=== PATIENT | female | born 1945 ===

== ENCOUNTER 2016-09-16 19:10 | Inpatient (IN) | payer MEDICARE, OTHER, MEDICAID ==
[2016-09-16 21:54] LABS: BASO % 0.6 % (0.0-2.0); EOS % 0.5 % (0.0-4.0); HEMATOCRIT 44.2 % (34.0-47.0); LYMPH # 1.6 K/uL (1.0-4.3); LYMPH % 20.8 % (20.0-40.0); MEAN CELL VOLUME 92.8 fl (81.0-99.0); MEAN CORPUSCULAR HGB CONC 32.4 g/dL (33.0-37.0); MEAN PLATELET VOLUME 8.7 fl (7.2-11.7); MONO # 0.6 K/uL (0.0-0.8); MONO % 7.9 % (0.0-10.0); NEUT # 5.3 K/uL (1.8-7.0); NEUT % 70.2 % (50.0-75.0); NRBC % 0.1 % (0.0-0.0); RED CELL DISTRIBUTION WIDTH 13.8 % (11.5-14.5); WHITE BLOOD COUNT 7.5 K/uL (4.8-10.8)
[2016-09-16 22:03] LABS: ALB/GLOB RATIO 1.1 (1.0-2.1); ALKALINE PHOSPHATASE 101 U/L (38-126); ALT/SGPT 24 U/L (9-52); AST/SGOT 23 U/L (14-36); BILIRUBIN,TOTAL 0.9 mg/dl (0.2-1.3); BLOOD UREA NITROGEN 10 mg/dl (7-17); CALCIUM 9.5 mg/dL (8.4-10.2); CARBON DIOXIDE 33 mmol/L (22-30); CHLORIDE 99 mmol/L (98-107); GFR AFRICAN-AMERICAN > 60; GLUCOSE,RANDOM 90 mg/dL (65-105); LIPASE 969 U/L (23-300); MAGNESIUM 2.2 MG/DL (1.6-2.3); PHOSPHOROUS 3.6 mg/dl (2.5-4.5); SODIUM 142 mmol/l (132-148)
[2016-09-16 22:11] LABS: PARTIAL THROMBOPLASTIN TIME 29.1 SECONDS (23.3-32.5)
[2016-09-16 22:32] LABS: THYROID STIMULATING HORMONE 1.52 mIU/ML (0.46-4.68)
--- NOTE | 2016-09-16 22:54 | ED PDOC ---
HPI:Nausea, Vomiting, Diarrhea Time Seen by Provider: 09/16/16 19:39 Chief Complaint (Nursing): Weakness/Neurological Deficit Chief Complaint (Provider): not eating History Per: Family History/Exam Limitations: clinical condition Additional Complaint(s): Family reports that for the last 2 weeks patient has not been eating or drinking. She denies any pain and has had no vomiting or diarrhea. Family reports that she just sleeps all day long and barely gets out of bed. Does not have any appetite whatsoever and seems to be getting weaker because of the lack of PO intake. Also was started on new neurologic medication 3 weeks ago. Past Medical History Reviewed: Historical Data, Nursing Documentation, Vital Signs Vital Signs: Last Vital Signs Temp 98.1 F 09/16/16 19:31 Pulse 92 H 09/16/16 19:31 Resp 16 09/16/16 19:31 BP 103/73 09/16/16 19:31 Pulse Ox 100 09/16/16 19:31 - Medical History PMH: Multiple Sclerosis, Osteoporosis - Surgical History Surgical History: No Surg Hx - Family History Family History: States: No Known Family Hx - Social History Current smoker - smoking cessation education provided: No Alcohol: None Drugs: Denies - Home Medications Home Medications: Ambulatory Orders Medication Instructions Recorded Alendronate [Fosamax] 70 mg PO QWK 09/17/16 Galantamine HBr [Galantamine HBr] 16 mg PO DAILY 09/17/16 Memantine HCl/Donepezil HCl 14 mg PO DAILY 09/17/16 [Namzaric 14 mg-10 mg Capsule] Memantine HCl/Donepezil HCl 21 mg PO DAILY 09/17/16 [Namzaric 21 mg-10 mg Capsule] Memantine HCl/Donepezil HCl 28 mg PO DAILY 09/17/16 [Namzaric 28 mg-10 mg Capsule] tiZANidine [Zanaflex] 2 mg PO BID 09/17/16 - Allergies Allergies/Adverse Reactions: Allergies Allergy/AdvReac Type Severity Reaction Status Date / Time No Known Allergies Allergy Verified 09/16/16 19:31 Review of Systems ROS Statement: Except As Marked, All Systems Reviewed And Found Negative (and as per HPI) Constitutional: Positive for: Weakness Gastrointestinal: Negative for: Nausea, Vomiting, Abdominal Pain, Diarrhea, Constipation, Melena, Hematochezia, Hematemesis Neurological: Negative for: Headache, Dizziness Physical Exam - Reviewed Nursing Documentation Reviewed: Yes Vital Signs Reviewed: Yes - Physical Exam Appears: Positive for: No Acute Distress (but tired appearing) Head Exam: Positive for: ATRAUMATIC, NORMOCEPHALIC Skin: Positive for: Warm, Dry Eye Exam: Positive for: EOMI, PERRL ENT: Negative for: Pharyngeal Erythema, Tonsillar Exudate Neck: Positive for: Painless ROM, Supple Cardiovascular/Chest: Positive for: Regular Rate, Rhythm. Negative for: Murmur Respiratory: Positive for: Normal Breath Sounds. Negative for: Wheezing, Respiratory Distress Gastrointestinal/Abdominal: Positive for: Bowel Sounds, Soft. Negative for: Tenderness, Mass, Distended, Guarding, Rebound, Asicites Back: Positive for: Normal Inspection. Negative for: Vertebral Tenderness Extremity: Positive for: Normal ROM. Negative for: Deformity Lymphatic: Negative for: Adenopathy Neurologic/Psych: Positive for: Alert. Negative for: Motor/Sensory Deficits - Laboratory Results Result Diagrams: 09/17/16 06:00 09/17/16 06:00 Interpretation Of Abn Labs: Labs c/w pancreatitis. - ECG O2 Sat by Pulse Oximetry: 100 Disposition - Clinical Impression Clinical Impression: Pancreatitis Counseled Patient/Family Regarding: Studies Performed, Diagnosis - Disposition Disposition Time: 22:00 Condition: SERIOUS - Pt Status Changed To: Hospital Disposition Of: Inpatient - Admit Certification Admit to Inpatient:: After my assessment, the patient will require hospitalization for at least two midnights. This is because of the severity of symptoms shown, intensity of services needed, and/or the medical risk in this patient being treated as an outpatient. - POA Present On Arrival: None
--- NOTE | 2016-09-17 00:01 | CP.PCM.HP ---
History of Present Illness - History of Present Illness History of Present Illness: 70 yo F w/ PMHx of MS presented to ED with due to 2 weeks of loss of appetite. Patient/family states patient had started a medication (namzaric) 2 wks ago when symptoms began. Medication was started by Neurologist, Dr. Mcduffie. Family states patient tends to pick food here and there prior to beginning of symptoms. For last 2 wks, patient has no interest in food and at times nods off during feedings. Patient denies nausea, vomiting, abdominal pain, fever, chills , back pain, chest pain, sob, cough, or any other recent medication changes. states urine output has been less in the last day which prompted visit. BM have been more firm then prior. No other complaints at this time. PMD: [facility], Dr. Ashely [place] PMHx: Multiple Sclerosis (dx'ed 30yrs ago) Meds: Namzaric, Fosamax, Galantamine Hydrobromide ER 16 MG daily, Tizanidine HCl 2 MG Tablet 1 tablet as needed Orally every 12 hrs Allergies: Denies Surgical hx : Denies Family hx: non-contributory Social hx: Denies tobacco, etoh, or illicit drug use. Lives with , refuses homemaker services. ED Course: Vitals stable PE unremarkable Labs notable for Lipase 969, no WBC Present on Admission - Present on Admission Any Indicators Present on Admission: No Review of Systems - Review of Systems All systems: reviewed and no additional remarkable complaints except (mentioned in HPI) Past Patient History - NEUROLOGICAL Hx Multiple Sclerosis: Yes Meds Allergies/Adverse Reactions: Allergies Allergy/AdvReac Type Severity Reaction Status Date / Time No Known Allergies Allergy Verified 09/16/16 19:31 Physical Exam - Constitutional Appears: Well, Non-toxic, No Acute Distress - Head Exam Head Exam: ATRAUMATIC, NORMAL INSPECTION, NORMOCEPHALIC - Eye Exam Eye Exam: EOMI, Normal appearance - ENT Exam ENT Exam: Mucous Membranes Moist Additional comments: Hard palate mucosa hypertrophy - Neck Exam Neck exam: Positive for: Normal Inspection - Respiratory Exam Respiratory Exam: Clear to Auscultation Bilateral, NORMAL BREATHING PATTERN. absent: Decreased Breath Sounds, Rales, Rhonchi, Wheezes - Cardiovascular Exam Cardiovascular Exam: RRR, +S1, +S2 - GI/Abdominal Exam GI & Abdominal Exam: Normal Bowel Sounds, Soft. absent: Distended, Firm, Guarding, Rebound, Tenderness - Extremities Exam Extremities exam: Positive for: normal inspection. Negative for: calf tenderness, pedal edema - Neurological Exam Neurological exam: Alert, Oriented x3 - Psychiatric Exam Psychiatric exam: Normal Affect, Normal Mood - Skin Skin Exam: Dry, Intact, Normal Color, Warm Results - Vital Signs Recent Vital Signs: Last Vital Signs Temp 98.1 F 09/16/16 19:31 Pulse 92 H 09/16/16 19:31 Resp 16 09/16/16 19:31 BP 103/73 09/16/16 19:31 Pulse Ox 100 09/16/16 22:59 - Labs Result Diagrams: 09/16/16 21:24 09/16/16 21:24 Assessment & Plan (1) Pancreatitis Status: Acute (2) Multiple sclerosis Status: Acute (3) DVT prophylaxis Status: Acute - Assessment and Plan (Free Text) Assessment: 70 yo F w/ PMHx of MS with 2 wks of loss of appetite admitted for pancreatitis. Plan: (1) Pancreatitis - Vitals stable, Afebrile, No WBC, LFTs normal. - Lipase 969 - Asymptomatic - Etiology at this time unknown, medication related vs high TG - Unable to calculate [place] criteria due to pending LDH, though BISAP score of 1 - NPO - Monitor vitals and I&O - LR @ 150cc/hr due to unknown urinary output BUN/Cr normal, - Labs in AM, including lipid panel - Although LFTs normal, can consider u/s of abdomen to r/o cholelithiasis - Continue to monitor (2) Multiple sclerosis - Will hold meds for now - Dr. Mcduffie is patient's neurology, consider input (3) DVT prophylaxis - Lovenox 40mg SC daily
[2016-09-17] MEDS: Lactated Ringer's 1,000 ML IV SCH ×2 (00:24→06:57)
[2016-09-17 02:17] LABS: RBC URINE 7 /hpf (0-3); URINE BACTERIA RARE (<OCC); URINE BILIRUBIN NEGATIVE (NEGATIVE); URINE BLOOD NEGATIVE (NEGATIVE); URINE COLOR YELLOW (YELLOW); URINE GLUCOSE (UA) NEG (Normal); URINE KETONE 80 mg/dL (NEGATIVE); URINE LEUKOCYTE ESTERASE LARGE Leu/uL (Negative); URINE PROTEIN 30 mg/dL (NEGATIVE); URINE UROBILINOGEN 0.2-1.0 mg/dL (0.2-1.0); WBC URINE 49 /hpf (0-5)
[2016-09-17 07:18] LABS: HEMATOCRIT 37.3 % (34.0-47.0); MEAN CELL VOLUME 92.8 fl (81.0-99.0); MEAN CORPUSCULAR HEMOGLOBIN 30.6 pg (27.0-31.0); RED CELL DISTRIBUTION WIDTH 13.8 % (11.5-14.5); WHITE BLOOD COUNT 5.6 K/uL (4.8-10.8)
[2016-09-17 07:41] LABS: ALB/GLOB RATIO 1.1 (1.0-2.1); ALKALINE PHOSPHATASE 80 U/L (38-126); ALT/SGPT 24 U/L (9-52); AST/SGOT 16 U/L (14-36); BILIRUBIN,TOTAL 0.9 mg/dl (0.2-1.3); BLOOD UREA NITROGEN 9 mg/dl (7-17); CALCIUM 8.9 mg/dL (8.4-10.2); CARBON DIOXIDE 32 mmol/L (22-30); CHLORIDE 103 mmol/L (98-107); CHOLESTEROL 164 mg/dL (0-199); GFR AFRICAN-AMERICAN > 60; GLUCOSE,RANDOM 81 mg/dL (65-105); POTASSIUM 4.5 MMOL/L (3.6-5.0); SODIUM 142 mmol/l (132-148); TOTAL PROTEIN 6.6 G/DL (6.3-8.2)
[2016-09-17] MEDS: Enoxaparin 40 mg Syringe SC SCH (08:50)
--- NOTE | 2016-09-17 09:26 | CP.PCM.PN ---
Subjective - Date & Time of Evaluation Date of Evaluation: 09/17/16 Time of Evaluation: 07:50 - Subjective Subjective: Patient seen and examined bedside. Denies N/V/D , abdominal pain, fever, chest pain, SOB. 1 bowel movement yesterday. Denies low intake for the last 2 weeks and has been ambulating at home with walker. History given in ED by her . Patient taking meds for dementia and her denial of symptoms may be related with memory loss. She has f/u with neurology also for Multiple sclerosis. No relatives bedside now. Denies weakness, difficulty walking or difficulty vision. Objective - Vital Signs/Intake and Output Vital Signs (last 24 hours): Temp Pulse Resp BP Pulse Ox 98.5 F 69 20 101/56 L 97 09/17/16 08:38 09/17/16 08:38 09/17/16 08:38 09/17/16 08:38 09/17/16 08:38 Intake and Output: 09/17/16 09/17/16 06:59 18:59 Intake Total 150 Output Total 250 Balance -100 - Medications Medications: Current Medications Enoxaparin Sodium (Lovenox) 40 mg SC DAILY [facility] PRN Reason: Protocol Last Admin: 09/17/16 08:50 Dose: 40 mg Lactated Ringer's (Lactated Ringer's) 1,000 mls @ 150 mls/hr IV .[id number] [facility] Last Admin: 09/17/16 06:57 Dose: 150 mls/hr - Labs Labs: 09/17/16 06:00 09/17/16 06:00 PT 11.7 SECONDS (9.6-11.2) H 09/16/16 21:24 INR 1.13 (0.92-1.08) H 09/16/16 21:24 APTT 29.1 SECONDS (23.3-32.5) 09/16/16 21:24 - Constitutional Appears: Well, Non-toxic, No Acute Distress - Head Exam Head Exam: ATRAUMATIC, NORMOCEPHALIC - Eye Exam Eye Exam: Normal appearance - Respiratory Exam Respiratory Exam: Clear to Ausculation Bilateral. absent: Rhonchi, Wheezes - Cardiovascular Exam Cardiovascular Exam: REGULAR RHYTHM, +S1, +S2 - GI/Abdominal Exam GI & Abdominal Exam: Soft, Normal Bowel Sounds. absent: Tenderness, Rebound - Extremities Exam Extremities Exam: Normal Inspection. absent: Pedal Edema - Neurological Exam Neurological Exam: Alert, Awake - Psychiatric Exam Psychiatric exam: Normal Affect, Normal Mood - Skin Skin Exam: Intact Assessment and Plan - Assessment and Plan (Free Text) Plan: Assessment: 70 yo , f, PMhx/o MS with 2 wks of loss of appetite admitted for pancreatitis. (1) Pancreatitis - Vitals stable, Afebrile, No WBC, LFTs normal. - Lipase 969 - Asymptomatic - Etiology at this time unknown, medication related vs high TG - Unable to calculate [place] criteria due to pending LDH, though BISAP score of 1 - Monitor vitals and I&O - lipid panel -Us abd -F/U lipase -IV fluids d/c. Patient well hydrated. -Regular diet. Patient asymptomatic. - Continue to monitor (2) Multiple sclerosis - Will hold meds for now - Dr. Mcduffie consulted by phone. States patient is stable and was seen 2 weeks ago. (3) DVT prophylaxis - Lovenox 40mg SC daily
--- NOTE | 2016-09-17 13:17 | US ---
HISTORY: lipase elevated.possible pancreatitis COMPARISON: None. TECHNIQUE: Sonographic evaluation of the abdomen. FINDINGS: LIVER: Measures 10.4 cm. Normal echogenicity of the liver parenchyma. No mass. No intrahepatic bile duct dilatation. GALLBLADDER: Single large gallstone within the gallbladder measuring 2.5 centimeters in diameter. No gallbladder wall thickening or pericholecystic fluid seen. Technologist did not report sonographic Dalton sign. COMMON BILE DUCT: Measures 2 mm. No stones. No dilatation. PANCREAS: Unremarkable as visualized. No mass. No ductal dilatation. RIGHT KIDNEY: Measures 9.9cm. Normal echogenicity. No calculus, mass, or hydronephrosis. LEFT KIDNEY: Measures 9.7cm. Normal echogenicity. No calculus, mass, or hydronephrosis. SPLEEN: Normal in size and contour. No mass. AORTA: No aneurysmal dilatation. IVC: Unremarkable. OTHER FINDINGS: None. IMPRESSION: Single large gallstone within the gallbladder. No definite ultrasound evidence of acute cholecystitis. No evidence of bile duct dilatation. No evidence of pancreatitis.
[2016-09-17] MEDS: Pantoprazole 20 mg EC Tab PO SCH (13:24)
[2016-09-18] MEDS: Enoxaparin 40 mg Syringe SC SCH (08:26)
[2016-09-18] MEDS: Pantoprazole 20 mg EC Tab PO SCH (08:26)
--- NOTE | 2016-09-18 11:41 | CP.PCM.PN ---
Subjective - Date & Time of Evaluation Date of Evaluation: 09/18/16 Time of Evaluation: 08:37 - Subjective Subjective: No active complaints. Denies abdominal pain, nausea, vomiting, diarrhea, Afebrile. Limited PO intake. Alert. Orientation limited x1. Objective - Vital Signs/Intake and Output Vital Signs (last 24 hours): Temp Pulse Resp BP Pulse Ox 99.3 F 63 20 133/69 97 09/18/16 08:12 09/18/16 08:12 09/18/16 08:12 09/18/16 08:12 09/18/16 08:12 Intake and Output: 09/18/16 09/18/16 06:59 18:59 Intake Total 180 Output Total 500 Balance -320 - Medications Medications: Current Medications Enoxaparin Sodium (Lovenox) 40 mg SC DAILY [facility] PRN Reason: Protocol Last Admin: 09/18/16 08:26 Dose: 40 mg Pantoprazole Sodium (Protonix Ec Tab) 20 mg PO DAILY [facility] Last Admin: 09/18/16 08:26 Dose: 20 mg - Labs Labs: 09/17/16 06:00 09/17/16 06:00 PT 11.7 SECONDS (9.6-11.2) H 09/16/16 21:24 INR 1.13 (0.92-1.08) H 09/16/16 21:24 APTT 29.1 SECONDS (23.3-32.5) 09/16/16 21:24 - Head Exam Head Exam: ATRAUMATIC, NORMOCEPHALIC - Eye Exam Eye Exam: EOMI, Normal appearance - Cardiovascular Exam Cardiovascular Exam: REGULAR RHYTHM, +S1, +S2 - GI/Abdominal Exam GI & Abdominal Exam: Soft. absent: Distended, Tenderness - Neurological Exam Neurological Exam: Alert Assessment and Plan - Assessment and Plan (Free Text) Plan: 1. Multiple sclerosis Dr. Mcduffie Neurology as outpatient. Patient is stable and was seen 2 weeks ago. Deconditioning- PT and OT eval and treat 2. Elevated Lipase Resolved Asymptomatic Unlikely Pancreatitis Follow up Lipase- WNL Abdominal Ultrasound- WNL Vitals stable, Afebrile, No WBC, LFTs normal. Monitor vitals and I&O 3. Decreased Appetite Consider Remeron augmenteion 4. DVT prophylaxis - Lovenox 40mg SC daily
[2016-09-19] MEDS: Enoxaparin 40 mg Syringe SC SCH (08:23)
[2016-09-19] MEDS: Pantoprazole 20 mg EC Tab PO SCH (08:24)
--- NOTE | 2016-09-19 09:58 | CP.PCM.PN ---
Subjective - Date & Time of Evaluation Date of Evaluation: 09/19/16 Time of Evaluation: 08:10 - Subjective Subjective: Patient seen and examined bedside. Reports feeling well. Denies abd pain,N/V/D. Tolerating regular diet. Still contacting her . PT evaluation recommended acute rehab Objective - Vital Signs/Intake and Output Vital Signs (last 24 hours): Temp Pulse Resp BP Pulse Ox 98.3 F 65 20 137/80 95 09/19/16 07:56 09/19/16 07:56 09/19/16 07:56 09/19/16 07:56 09/19/16 07:56 - Medications Medications: Current Medications Enoxaparin Sodium (Lovenox) 40 mg SC DAILY [facility] PRN Reason: Protocol Last Admin: 09/19/16 08:23 Dose: 40 mg Pantoprazole Sodium (Protonix Ec Tab) 20 mg PO DAILY [facility] Last Admin: 09/19/16 08:24 Dose: 20 mg - Labs Labs: 09/17/16 06:00 09/17/16 06:00 PT 11.7 SECONDS (9.6-11.2) H 09/16/16 21:24 INR 1.13 (0.92-1.08) H 09/16/16 21:24 APTT 29.1 SECONDS (23.3-32.5) 09/16/16 21:24 - Constitutional Appears: Non-toxic, No Acute Distress - Head Exam Head Exam: NORMOCEPHALIC - Eye Exam Eye Exam: Normal appearance - Respiratory Exam Respiratory Exam: Clear to Ausculation Bilateral. absent: Rales, Rhonchi, Wheezes - Cardiovascular Exam Cardiovascular Exam: REGULAR RHYTHM, +S1, +S2 - GI/Abdominal Exam GI & Abdominal Exam: Soft, Normal Bowel Sounds. absent: Tenderness - Extremities Exam Extremities Exam: Normal Inspection. absent: Pedal Edema - Back Exam Back Exam: absent: NORMAL INSPECTION - Neurological Exam Neurological Exam: Alert, Awake - Skin Skin Exam: Intact Assessment and Plan - Assessment and Plan (Free Text) Plan: 70 yo , f, PMhx/o MS. Patient's c/o 2 wks of loss of appetite, low urination, admitted for possible acute pancreatitis. Plan: 1. Multiple sclerosis Dr. Mcduffie Neurology as outpatient. Patient is stable and was seen 2 weeks ago. PT evaluation recommends acute rehab 2. Elevated Lipase Resolved Asymptomatic Unlikely Pancreatitis Follow up Lipase- WNL Abdominal Ultrasound- Single gallstone within gallbladder. No pancreatitis, no cholecystitis. Vitals stable, Afebrile, No WBC, LFTs normal. Monitor vitals and I&O 3. Decreased Appetite Consider Remeron augmenteion 4. DVT prophylaxis - Lovenox 40mg SC daily
[2016-09-20] MEDS: Enoxaparin 40 mg Syringe SC SCH (08:56)
[2016-09-20] MEDS: Pantoprazole 20 mg EC Tab PO SCH ×2 (08:56→08:57)
[2016-09-20] MEDS: Ampicillin/Sulbactam 3 GM in Sodium Chloride 0.9% 100 ML IVPB SCH ×3 (09:00→22:12)
--- NOTE | 2016-09-20 10:14 | CP.PCM.PN ---
Subjective - Date & Time of Evaluation Date of Evaluation: 09/20/16 Time of Evaluation: 07:40 - Subjective Subjective: Patient seen and examined bedside lying down. Patient noted with right facial swelling today in the morning. Reports toothache when eating started yesterday. Had fever last night. Denies chest pain, SOB, palpitation, N/V/D, abdominal pain , hallucination. Tolerating regular diet. AAO x 2 ( not in place). Confused about place orientation. States she is in her house, on her bed in her room. Objective - Vital Signs/Intake and Output Vital Signs (last 24 hours): Temp Pulse Resp BP Pulse Ox 99.0 F 78 20 113/78 96 09/20/16 07:56 09/20/16 07:56 09/20/16 07:56 09/20/16 07:56 09/20/16 07:56 Intake and Output: 09/20/16 09/20/16 06:59 18:59 Intake Total 120 Balance 120 - Medications Medications: Current Medications Ampicillin Sodium/Sulbactam (Sodium 3 gm/ Sodium Chloride) 100 mls @ 100 mls/ hr IVPB Q6 [facility] Last Admin: 09/20/16 09:00 Dose: 100 mls/hr Pantoprazole Sodium (Protonix Ec Tab) [address] [facility] Last Admin: 09/20/16 08:57 Dose: 20 mg - Labs Labs: 09/17/16 06:00 09/17/16 06:00 PT 11.7 SECONDS (9.6-11.2) H 09/16/16 21:24 INR 1.13 (0.92-1.08) H 09/16/16 21:24 APTT 29.1 SECONDS (23.3-32.5) 09/16/16 21:24 - Constitutional Appears: Non-toxic, No Acute Distress - Head Exam Head Exam: ATRAUMATIC, NORMOCEPHALIC Additional comments: Right facial swelling (cheek) with mild erythema.TD to palpation. right upper maxilla with tooth percussion positive TD - Eye Exam Eye Exam: Normal appearance - Respiratory Exam Respiratory Exam: Clear to Ausculation Bilateral. absent: Rales, Rhonchi, Wheezes - Cardiovascular Exam Cardiovascular Exam: REGULAR RHYTHM, +S1, +S2 - GI/Abdominal Exam GI & Abdominal Exam: Soft, Normal Bowel Sounds. absent: Tenderness - Extremities Exam Extremities Exam: Normal Inspection. absent: Calf Tenderness - Neurological Exam Neurological Exam: Alert, Awake (Oriented x 2( not in place)) - Psychiatric Exam Psychiatric exam: Normal Affect - Skin Skin Exam: Intact Assessment and Plan - Assessment and Plan (Free Text) Plan: 70 yo , f, PMhx/o MS. Patient's c/o 2 wks of loss of appetite, low urination, admitted for possible acute pancreatitis. Assessment/Plan 1. Multiple sclerosis -Dr. Mcduffie Neurology as outpatient. -Patient is stable and was seen 2 weeks ago. -PT evaluation recommends acute rehab -Acute rehab discussed with patient's son by high school social studies teacher and he declined sub acute rehab in hospital. Patient's son and wants PT outpatient. Pending insurance approval 2) Right side odontogenic facial cellulitis - right facial swelling, right upper maxila with tooth decay and tooth percussion positive -Vitals sings reviewed: fever 102.4 -Unasyn ( Ampicillin sodium/Sulbactam sodium) 3 g IV Q6h started today 3 Elevated Lipase Resolved Asymptomatic Unlikely Pancreatitis Follow up Lipase- WNL Abdominal Ultrasound- Single gallstone within gallbladder. No pancreatitis, no cholecystitis. Vitals stable, Afebrile, No WBC, LFTs normal. Monitor vitals and I&O 4. Decreased Appetite Consider Remeron augmenteion 5. DVT prophylaxis - Lovenox 40mg SC daily -
[2016-09-20] MEDS ORDERED: Sodium Chloride 0.9% 1,000 ML IV SCH (16:30)
--- NOTE | 2016-09-20 20:33 | CP.PCM.PN ---
Subjective - Date & Time of Evaluation Date of Evaluation: 09/20/16 Time of Evaluation: 20:30 - Subjective Subjective: ID NOTE PATIENT EXAMINED ,CHART REVIEWED ORDERS GIVEN FULL CONSULT DICTATED Objective - Vital Signs/Intake and Output Vital Signs (last 24 hours): Temp Pulse Resp BP Pulse Ox 98.7 F 87 20 111/73 100 09/20/16 17:29 09/20/16 17:29 09/20/16 17:29 09/20/16 17:29 09/20/16 19:10 - Medications Medications: Current Medications Enoxaparin Sodium (Lovenox) 40 mg SC DAILY [facility] PRN Reason: Protocol Ampicillin Sodium/Sulbactam (Sodium 3 gm/ Sodium Chloride) 100 mls @ 100 mls/ hr IVPB Q6 [facility] Last Admin: 09/20/16 16:52 Dose: 100 mls/hr Sodium Chloride (Sodium Chloride 0.9%) 1,000 mls @ 80 mls/hr IV .[id number] [facility] Stop: 09/21/16 16:31 Last Admin: 09/20/16 17:10 Dose: 80 mls/hr Clindamycin Phosphate 600 mg/ (Sodium Chloride) 104 mls @ 104 mls/hr IVPB Q8 [facility] Pantoprazole Sodium (Protonix Ec Tab) 20 mg PO DAILY [facility] Last Admin: 09/20/16 08:57 Dose: 20 mg - Labs Labs: 09/17/16 06:00 09/17/16 06:00 PT 11.7 SECONDS (9.6-11.2) H 09/16/16 21:24 INR 1.13 (0.92-1.08) H 09/16/16 21:24 APTT 29.1 SECONDS (23.3-32.5) 09/16/16 21:24
--- NOTE | 2016-09-20 21:00 | CON ---
DATE: 09/20/2016 The patient is admitted to med-surg floor. HISTORY OF PRESENT ILLNESS: The patient originally came to the Emergency Room because she had not be en eating or drinking well for the previous 2 weeks. She denies any vomiting or diarrhea, or pain. The family just says that she has been sleeping constantly and rarely gets out of bed, obviously she is becoming weaker. She is also on a new neurologic medication she has multiple sclerosis and osteop orosis. Apparently, there have been no new issues with her multiple sclerosis. The patient is being seen as within the past 3 days she has been developing swelling in the right facial area, which has become quite large. She states she has some pain in the area, but also she does appear a bit confuse d. PHYSICAL EXAMINATION: GENERAL: She is awake and responding to questions, mostly when I speak [place] to her. NECK: Supple, but she does have some tenderness on the right submandibular area. LUNGS: Decreased breath sounds at bases. HEART: Regular sinus rhythm. ABDOMEN: Soft, positive for bowel sounds. There was no tenderness when I examined the patient. EXTREMITIES: No CCE. LABORATORY DATA: White count is 5.6, hemoglobin 12.3, platelet count 242, there is a normal differen tial. Creatinine is 0.5. GFR is greater than 60. The patient had a lipase of 969 on admission and presently is 167. Urine shows some 49 microscopic WBCs. IMPRESSION: At the present time, the patient has what appears to be a dental abscess, right facial a ezekiel. I have ordered a CT scan of the face, sinuses, and mandible. She has been put on Unasyn and I have added clindamycin 600 mg IV piggyback to the treatment. She also has cultures pending. Other d iagnoses, as stated before, multiple sclerosis and osteoporosis. Javier Silverman MD cc: [id number] TT: 09/20/2016 20:59:46 Confirmation # [id number] Dictation # [id number]
[2016-09-21] MEDS: Clindamycin 600 MG in Sodium Chloride 0.9% 100 ML IVPB SCH ×3 (00:25→16:46)
[2016-09-21] MEDS: Ampicillin/Sulbactam 3 GM in Sodium Chloride 0.9% 100 ML IVPB SCH ×4 (04:28→21:00)
[2016-09-21 07:09] LABS: BASO % 0.5 % (0.0-2.0); EOS # 0.1 K/uL (0.0-0.7); EOS % 0.9 % (0.0-4.0); HEMATOCRIT 36.5 % (34.0-47.0); LYMPH # 1.3 K/uL (1.0-4.3); LYMPH % 18.7 % (20.0-40.0); MEAN CELL VOLUME 93.1 fl (81.0-99.0); MEAN CORPUSCULAR HEMOGLOBIN 30.3 pg (27.0-31.0); MEAN CORPUSCULAR HGB CONC 32.6 g/dL (33.0-37.0); MEAN PLATELET VOLUME 9.2 fl (7.2-11.7); MONO # 0.9 K/uL (0.0-0.8); NEUT # 4.5 K/uL (1.8-7.0); NEUT % 66.9 % (50.0-75.0); NRBC % 0.1 % (0.0-0.0); RED CELL DISTRIBUTION WIDTH 13.6 % (11.5-14.5); WHITE BLOOD COUNT 6.7 K/uL (4.8-10.8)
--- NOTE | 2016-09-21 07:37 | CP.PCM.PN ---
Subjective - Date & Time of Evaluation Date of Evaluation: 09/21/16 Time of Evaluation: 07:15 - Subjective Subjective: Patient seen and examined bedside. Less right facial swelling compared with yesterday. Denies facial pain, N/V/D. Afebrile last night. Had dinner last night. no BM reported yesterday. AAO x1. Denies hallucination. Objective - Vital Signs/Intake and Output Vital Signs (last 24 hours): Temp Pulse Resp BP Pulse Ox 99.9 F H 96 H 20 106/70 96 09/20/16 22:39 09/20/16 22:39 09/20/16 22:39 09/20/16 22:39 09/20/16 22:39 - Medications Medications: Current Medications Enoxaparin Sodium (Lovenox) 40 mg SC DAILY [facility] PRN Reason: Protocol Ampicillin Sodium/Sulbactam (Sodium 3 gm/ Sodium Chloride) 100 mls @ 100 mls/ hr IVPB Q6 [facility] Last Admin: 09/21/16 04:28 Dose: 100 mls/hr Sodium Chloride (Sodium Chloride 0.9%) 1,000 mls @ 80 mls/hr IV .[id number] [facility] Stop: 09/21/16 16:31 Last Admin: 09/20/16 17:10 Dose: 80 mls/hr Clindamycin Phosphate 600 mg/ (Sodium Chloride) 104 mls @ 104 mls/hr IVPB Q8 [facility] Last Admin: 09/21/16 00:25 Dose: 104 mls/hr Pantoprazole Sodium (Protonix Ec Tab) 20 mg PO DAILY [facility] Last Admin: 09/20/16 08:57 Dose: 20 mg - Labs Labs: 09/17/16 06:00 09/17/16 06:00 PT 11.7 SECONDS (9.6-11.2) H 09/16/16 21:24 INR 1.13 (0.92-1.08) H 09/16/16 21:24 APTT 29.1 SECONDS (23.3-32.5) 09/16/16 21:24 - Constitutional Appears: Non-toxic, No Acute Distress - Head Exam Additional comments: Right facial swelling with mild TD to palpation. Less swelling compared with yesterday. Tooth percussion positive right lower jaw - Eye Exam Eye Exam: Normal appearance Additional comments: no orbital cellulitis - Respiratory Exam Respiratory Exam: Clear to Ausculation Bilateral. absent: Rales, Rhonchi, Wheezes - Cardiovascular Exam Cardiovascular Exam: REGULAR RHYTHM, +S1, +S2 - GI/Abdominal Exam GI & Abdominal Exam: Soft, Normal Bowel Sounds. absent: Tenderness - Extremities Exam Extremities Exam: Normal Inspection - Neurological Exam Neurological Exam: Alert, Awake Additional comments: Oriented x 1 in person, not in place and time - Psychiatric Exam Psychiatric exam: Normal Mood - Skin Skin Exam: Intact Assessment and Plan - Assessment and Plan (Free Text) Plan: 70 yo , f, PMhx/o MS. Patient's c/o 2 wks of loss of appetite, low urination, admitted for possible acute pancreatitis. Assessment/Plan 1. Multiple sclerosis -Dr. Mcduffie Neurology as outpatient. -Patient is stable and was seen 2 weeks ago. -PT evaluation recommends acute rehab -Acute rehab discussed with patient's son by social director and he declined sub acute rehab in hospital. Patient's son and wants PT outpatient. Pending insurance approval 2) Right side odontogenic facial cellulitis - right facial swelling, right upper maxila with tooth decay and tooth percussion positive -Vitals sings reviewed: afebrile yesterday -Unasyn ( Ampicillin sodium/Sulbactam sodium) 3 g IV Q6h . 1st day today -ID consult appreciated: c/w Unasyn and Clindamycin 600 mg IV Q8h -CT head w/contrast f/o -sed rate high 91 secondary to infection 3 Elevated Lipase Resolved Asymptomatic Unlikely Pancreatitis Follow up Lipase- WNL Abdominal Ultrasound- Single gallstone within gallbladder. No pancreatitis, no cholecystitis. Vitals stable, Afebrile, No WBC, LFTs normal. Monitor vitals and I&O 4. Decreased Appetite Consider Remeron augmentation 5. DVT prophylaxis - Lovenox 40mg SC daily -
[2016-09-21] MEDS: Pantoprazole 20 mg EC Tab PO SCH (08:41)
[2016-09-21] MEDS: Enoxaparin 40 mg Syringe SC SCH (08:41)
[2016-09-21] MEDS ORDERED: Iohexol 300 100 ML IJ ONE (13:57)
[2016-09-21] MEDS ORDERED: Sodium Chloride 0.9% 50 ML IV ONE (13:57)
--- NOTE | 2016-09-21 15:27 | CT ---
PROCEDURE: CT HEAD WITH CONTRAST HISTORY: R DENTAL ABSCESS COMPARISON: None available. TECHNIQUE: Axial computed tomography images were obtained through the head/brain with intravenous contrast. Contrast dose: 100 mL Omnipaque 300 Radiation dose: Total exam DLP = 1507.99 mGy-cm. FINDINGS: HEMORRHAGE: No intracranial hemorrhage appreciated. There is no noncontrast head CT available for comparison and intracranial hemorrhage may be obscured by the presence of intravenous contrast BRAIN: No intracranial mass. No abnormal intracranial enhancement. Moderate diffuse age-appropriate cerebral atrophy. Moderate periventricular white matter lucency with patchy and confluent deep and subcortical white matter lucency, consistent with microvascular ischemic change. There is probable miguelito white matter infarct in the right parietal white matter posterior to the body of the right lateral ventricle. VENTRICLES: Unremarkable. No hydrocephalus. CALVARIUM: Unremarkable. PARANASAL SINUSES: Chronic right maxillary sinusitis. MASTOID AIR CELLS: Unremarkable as visualized. No mastoid effusion. OTHER FINDINGS: None. IMPRESSION: No evidence of intracranial abscess. Age related atrophy and probable chronic microvascular white matter ischemic change. 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 Chronic right maxillary sinusitis.
[2016-09-21] MEDS ORDERED: Sodium Chloride 0.45% 1,000 ML IV SCH (15:30)
--- NOTE | 2016-09-21 16:01 | CT ---
CT scan of the maxillofacial skeleton/orbits 09/21/2016. History: Abscess. Contiguous helical/transaxial sections of the maxillofacial skeleton including orbits performed following intravenous injection of approximately 95 cc of Omnipaque 300 contrast material. Additional 2 dimensional sagittal and coronal reformats provided. Radiation dose. Total DLP = see CT scan head dose report Findings: The current study reveals a small semi lunar shaped on abscess collection adjacent to to the lateral aspect right maxillary alveolus of which measures approximately 11 x AP times 2 mm trans associated with overlying induration and infiltration. There may also be extension of abscess along the posterior margin of the right maxillary alveolus in the retromolar trigone region. This is likely related to periodontal disease as there are small radicular cysts seen involving the roots of 2nd bicuspid and the 1st and 2nd right maxillary alveolar molars. Subcutaneous infiltration changes -cellulitis of the right cheek extends superiorly into the premaxillary soft tissues and laterally into the cheek bordering the right sternomastoid muscle. There also appears to be some infiltration/cellulitis within the dorsal and immediately abutting posterior wall right maxillary antrum. There is mild mucosal thickening right maxillary sinus regions are felt to be separate and unrelated to the aforementioned at abscess and inflammation. Occlusion right ostiomeatal complex. Minor mucosal thickening seen within a few ethmoid air cells. Orbits and contents are unremarkable. Globes intact and lenses appropriately located. There are no retrobulbar are hemorrhages or collections seen. Incidental note made of prominent torus palatinus right side larger than the left. Impression: Findings are consistent with right small semi lunar shaped at abscess adjacent to the right lateral maxillary alveolus all also overlying several small radicular cysts surrounding the roots of the 2nd bicuspid as well as 1st and 2nd right-sided molar teeth likely at the origin of the abscess. . Abscess may also extend posteriorly abutting the posterior margin right maxillary alveolus in the retromolar trigone region. Infiltration changes/ cellulitis are seen throughout the right facial soft tissues on
[2016-09-22] MEDS: Clindamycin 600 MG in Sodium Chloride 0.9% 100 ML IVPB SCH ×3 (00:31→16:24)
[2016-09-22] MEDS: Ampicillin/Sulbactam 3 GM in Sodium Chloride 0.9% 100 ML IVPB SCH ×4 (03:19→21:18)
[2016-09-22] MEDS: Enoxaparin 40 mg Syringe SC SCH (08:50)
[2016-09-22] MEDS: Pantoprazole 20 mg EC Tab PO SCH (08:50)
--- NOTE | 2016-09-22 11:22 | CP.PCM.PN ---
Subjective - Date & Time of Evaluation Date of Evaluation: 09/22/16 Time of Evaluation: 07:30 - Subjective Subjective: Patient seen and examined bedside. More oriented today. AAO x3. Denies fever, facial pain, N/V/D. Tolerating regular diet. Objective - Vital Signs/Intake and Output Vital Signs (last 24 hours): Temp Pulse Resp BP Pulse Ox 97.5 F L 91 H 20 104/71 98 09/22/16 08:36 09/22/16 08:36 09/22/16 08:36 09/22/16 08:36 09/22/16 08:36 Intake and Output: 09/22/16 09/22/16 06:59 18:59 Intake Total 900 Balance 900 - Medications Medications: Current Medications Enoxaparin Sodium (Lovenox) 40 mg SC DAILY [facility] PRN Reason: Protocol Last Admin: 09/22/16 08:50 Dose: 40 mg Ampicillin Sodium/Sulbactam (Sodium 3 gm/ Sodium Chloride) 100 mls @ 100 mls/ hr IVPB Q6 [facility] Last Admin: 09/22/16 09:52 Dose: 100 mls/hr Clindamycin Phosphate 600 mg/ (Sodium Chloride) 104 mls @ 104 mls/hr IVPB Q8 [facility] Last Admin: 09/22/16 08:48 Dose: 104 mls/hr Sodium Chloride (Sodium Chloride 0.45%) 1,000 mls @ 50 mls/hr IV .Q20H [facility] Stop: 09/22/16 15:31 Last Admin: 09/21/16 16:48 Dose: 50 mls/hr Pantoprazole Sodium (Protonix Ec Tab) 20 mg PO DAILY [facility] Last Admin: 09/22/16 08:50 Dose: 20 mg - Labs Labs: 09/21/16 05:40 09/17/16 06:00 PT 11.7 SECONDS (9.6-11.2) H 09/16/16 21:24 INR 1.13 (0.92-1.08) H 09/16/16 21:24 APTT 29.1 SECONDS (23.3-32.5) 09/16/16 21:24 - Constitutional Appears: Non-toxic, No Acute Distress - Head Exam Head Exam: ATRAUMATIC, NORMOCEPHALIC Additional comments: Less facial swelling compared with yesterday. No erythema. Right upper maxilla with positive TD tooth percussion. - Eye Exam Eye Exam: Normal appearance Additional comments: no orbital cellulitis - Respiratory Exam Respiratory Exam: Clear to Ausculation Bilateral. absent: Rales, Rhonchi, Wheezes, Stridor - Cardiovascular Exam Cardiovascular Exam: REGULAR RHYTHM, +S1, +S2 - GI/Abdominal Exam GI & Abdominal Exam: Soft, Normal Bowel Sounds. absent: Tenderness - Extremities Exam Extremities Exam: Normal Inspection. absent: Joint Swelling, Pedal Edema - Neurological Exam Neurological Exam: Alert, Awake, Oriented x3 - Psychiatric Exam Psychiatric exam: Normal Affect - Skin Skin Exam: Intact Assessment and Plan - Assessment and Plan (Free Text) Plan: 70 yo , f, PMhx/o MS. Patient's c/o 2 weeks of loss of appetite, low urination, admitted for possible acute pancreatitis. Assessment/Plan 1) Multiple sclerosis -Dr. Mcduffie Neurology as outpatient. -Patient is stable and was seen 2 weeks ago. -PT evaluation recommends acute rehab -PT reevaluation -Acute rehab discussed with patient's son by public health social worker and he declined sub acute rehab in hospital. Patient's son and wants PT outpatient. Pending insurance approval 2) Right side odontogenic facial cellulitis - right facial swelling, right upper maxila with tooth decay and tooth percussion positive -Vitals sings reviewed: afebrile yesterday -Unasyn ( Ampicillin sodium/Sulbactam sodium) 3 g IV Q6h . 2nd day today -ID consult appreciated: c/w Unasyn and Clindamycin 600 mg IV Q8h . 1st day today -CT facial bones showed right maxillary odontogenic abscess with cellulitis -sed rate high 91 secondary to infection 3) Delirium -resolved -Secondary to odontogenic infection 4) Elevated Lipase Resolved Asymptomatic Unlikely Pancreatitis Follow up Lipase- WNL Abdominal Ultrasound- Single gallstone within gallbladder. No pancreatitis, no cholecystitis. Vitals stable, Afebrile, No WBC, LFTs normal. Monitor vitals and I&O 5. DVT prophylaxis - Lovenox 40mg SC daily -
[2016-09-23] MEDS: Clindamycin 600 MG in Sodium Chloride 0.9% 100 ML IVPB SCH ×3 (01:18→16:22)
[2016-09-23] MEDS: Ampicillin/Sulbactam 3 GM in Sodium Chloride 0.9% 100 ML IVPB SCH ×4 (04:02→22:47)
--- NOTE | 2016-09-23 07:43 | CARD ---
APPROVED REPORT EXAM: Two-dimensional and M-mode echocardiogram with Doppler and color Doppler. Other Information Quality : AverageRhythm : NSR INDICATION Infection: Abscess 2D DIMENSIONS IVSd0.82 (0.7-1.1cm)LVDd3.89 (3.9-5.9cm) PWd0.75 (0.7-1.1cm)IVSs1.00 (0.8-1.2cm) LVDs2.99 (2.5-4.0cm)FS (%) 23.1 % PWs0.72 (0.8-1.2cm) M-Mode DIMENSIONS Left Atrium (MM)3.19 (2.5-4.0cm)Aortic Root2.86 (2.2-3.7cm) Aortic Cusp Exc.1.70 (1.5-2.0cm) Mitral Valve MV E Gngoonij29.1cm/sMV DECEL [id number] A Putgxoln20.9cm/s MV ZNX42dmO/A ratio1.0MVA (PHT)3.49cm2 TDI Lateral E' Peak V7.58cm/sMedial E' Peak V9.94cm/sE/Lateral E'8.3 E/Medial E'6.3 Pulmonary Valve PV Peak Kyebhipk53.2cm/s Tricuspid Valve TR Peak Pjjmgmab219ww/sRAP [id number] Peak Gr.10mmHg [id number] LEFT VENTRICLE The left ventricle is normal size. There is normal left ventricular wall thickness. Left ventricle systolic function is normal. The Ejection Fraction is 60-65%. There is normal LV segmental wall motion. Transmitral Doppler flow pattern is Grade I-abnormal relaxation pattern. RIGHT VENTRICLE The right ventricle is normal size. There is normal right ventricular wall thickness. The right ventricular systolic function is normal. ATRIA The left atrium size is normal. The right atrium size is normal. AORTIC VALVE The aortic valve is normal in structure and function. No aortic regurgitation is present. There is no aortic valvular stenosis. MITRAL VALVE The mitral valve is normal in structure and function. There is no evidence of mitral valve prolapse. There is no mitral valve stenosis. There is no mitral valve regurgitation noted. TRICUSPID VALVE The tricuspid valve is normal in structure. There is mild tricuspid regurgitation. Right ventricular systolic pressure is estimated at 20 mmHg. There is no pulmonary hypertension. PULMONIC VALVE The pulmonary valve is normal in structure and function. There is no pulmonic valvular regurgitation. GREAT VESSELS The aortic root is normal in size. Due to poor image quality, the IVC could not be assessed. PERICARDIAL EFFUSION The pericardium appears normal. <Conclusion> The left ventricle is normal size. There is normal left ventricular wall thickness. There is normal LV segmental wall motion. Left ventricle systolic function is normal. The Ejection Fraction is 60-65%. Transmitral Doppler flow pattern is Grade I-abnormal relaxation pattern.
--- NOTE | 2016-09-23 09:18 | CP.PCM.PN ---
Subjective - Date & Time of Evaluation Date of Evaluation: 09/23/16 Time of Evaluation: 07:00 - Subjective Subjective: Patient seen and examined beside. Feeling better. AAO x2. Denies facial pain, tooth pain, fever, abd pain, N/V. Had Physical therapy eval yesterday. Objective - Vital Signs/Intake and Output Vital Signs (last 24 hours): Temp Pulse Resp BP Pulse Ox 98.1 F 74 19 112/66 98 09/23/16 01:00 09/23/16 01:00 09/23/16 01:00 09/23/16 01:00 09/23/16 01:00 - Medications Medications: Current Medications Enoxaparin Sodium (Lovenox) 40 mg SC DAILY [facility] PRN Reason: Protocol Last Admin: 09/22/16 08:50 Dose: 40 mg Ampicillin Sodium/Sulbactam (Sodium 3 gm/ Sodium Chloride) 100 mls @ 100 mls/ hr IVPB Q6 [facility] Last Admin: 09/23/16 04:02 Dose: 100 mls/hr Clindamycin Phosphate 600 mg/ (Sodium Chloride) 104 mls @ 104 mls/hr IVPB Q8 [facility] Last Admin: 09/23/16 01:18 Dose: 104 mls/hr - Labs Labs: 09/21/16 05:40 09/17/16 06:00 PT 11.7 SECONDS (9.6-11.2) H 09/16/16 21:24 INR 1.13 (0.92-1.08) H 09/16/16 21:24 APTT 29.1 SECONDS (23.3-32.5) 09/16/16 21:24 - Constitutional Appears: Non-toxic, No Acute Distress - Head Exam Head Exam: ATRAUMATIC, NORMOCEPHALIC Additional comments: mild facial swelling better compared with yesterday. no erythema. Right upper tooth Td to percussion . - Eye Exam Eye Exam: Normal appearance Additional comments: no orbital cellulitis - Respiratory Exam Respiratory Exam: Clear to Ausculation Bilateral. absent: Rales, Rhonchi, Wheezes - Cardiovascular Exam Cardiovascular Exam: REGULAR RHYTHM, +S1, +S2 - GI/Abdominal Exam GI & Abdominal Exam: Soft, Normal Bowel Sounds. absent: Tenderness - Extremities Exam Extremities Exam: Normal Inspection. absent: Calf Tenderness - Neurological Exam Neurological Exam: Alert, Awake - Psychiatric Exam Psychiatric exam: Normal Mood - Skin Skin Exam: Intact Additional comments: sacral region skin intact. small round area of erythema left gluteal region that disappear with touch. no pressure ulcers present Assessment and Plan - Assessment and Plan (Free Text) Plan: 70 yo , f, PMhx/o MS. Patient's c/o 2 weeks of loss of appetite, low urination, admitted for possible acute pancreatitis. during hospitalization right maxillary odontogenic abscess Assessment/Plan 1) Multiple sclerosis -Dr. Mcduffie Neurology as outpatient. -Patient is stable and was seen 2 weeks ago. -PT evaluation recommends acute rehab -PT f/u -Acute rehab discussed with patient's son by social security specialist and he declined sub acute rehab in hospital. Patient's son and wants PT outpatient. Pending insurance approval. 2) Right side odontogenic facial cellulitis - right facial swelling, right upper maxila with tooth decay and tooth percussion positive -Vitals sings reviewed: afebrile yesterday -Unasyn ( Ampicillin sodium/Sulbactam sodium) 3 g IV Q6h . 3rd day today. Will keep for 5 days and switch to oral antibiotic -Clindamycin 600 mg IV Q8h . 2nd day today. Clyndamicin will be stop tomorrow. -ID consult appreciated: c/w Unasyn and Clindamycin -CT facial bones showed right maxillary odontogenic abscess with cellulitis -sed rate high 91 secondary to infection or MS -Echo Normal 3) Delirium hypoactive -resolved -Secondary to odontogenic infection 4) Elevated Lipase Resolved Asymptomatic Unlikely Pancreatitis Follow up Lipase- WNL Abdominal Ultrasound- Single gallstone within gallbladder. No pancreatitis, no cholecystitis. Vitals stable, Afebrile, No WBC, LFTs normal. Monitor vitals and I&O 5. DVT prophylaxis - Lovenox 40mg SC daily
[2016-09-23] MEDS: Enoxaparin 40 mg Syringe SC SCH (09:35)
[2016-09-23] MEDS: Pantoprazole 20 mg EC Tab PO SCH (09:36)
[2016-09-24] MEDS: Clindamycin 600 MG in Sodium Chloride 0.9% 100 ML IVPB SCH ×3 (00:55→17:40)
[2016-09-24] MEDS: Ampicillin/Sulbactam 3 GM in Sodium Chloride 0.9% 100 ML IVPB SCH ×4 (03:33→22:56)
--- NOTE | 2016-09-24 08:08 | CP.PCM.PN ---
Subjective - Date & Time of Evaluation Date of Evaluation: 09/24/16 Time of Evaluation: 07:35 - Subjective Subjective: Patient seen and examined bedside. AAO x 2( not in place). Denies facial pain, N /V/D abd pain. No overnight events. Less facial swelling. afebrile. Instructed to move on the bed and to go to the chair. I spoke with Mr Leo yesterday about patient medical condition. Patient's verbalized understanding about need of dentist consult after discharge. He accepted Physical therapy inpatient or outpatient once the medical insurance approve it. breast worker Josr called yesterday afternoon and said that Medical Insurance approval will be by monday or Monday. Objective - Vital Signs/Intake and Output Vital Signs (last 24 hours): Temp Pulse Resp BP Pulse Ox 98.5 F 82 20 107/66 96 09/23/16 22:00 09/23/16 22:00 09/23/16 22:00 09/23/16 22:00 09/23/16 22:00 - Medications Medications: Current Medications Enoxaparin Sodium (Lovenox) 40 mg SC DAILY [facility] PRN Reason: Protocol Last Admin: 09/23/16 09:35 Dose: 40 mg Ampicillin Sodium/Sulbactam (Sodium 3 gm/ Sodium Chloride) 100 mls @ 100 mls/ hr IVPB Q6 [facility] Last Admin: 09/24/16 03:33 Dose: 100 mls/hr Clindamycin Phosphate 600 mg/ (Sodium Chloride) 104 mls @ 104 mls/hr IVPB Q8 [facility] Last Admin: 09/24/16 00:55 Dose: 104 mls/hr - Labs Labs: 09/21/16 05:40 09/17/16 06:00 PT 11.7 SECONDS (9.6-11.2) H 09/16/16 21:24 INR 1.13 (0.92-1.08) H 09/16/16 21:24 APTT 29.1 SECONDS (23.3-32.5) 09/16/16 21:24 - Constitutional Appears: Non-toxic, No Acute Distress - Head Exam Head Exam: ATRAUMATIC, NORMOCEPHALIC Additional comments: less facial swelling compared with yesterday. - Eye Exam Eye Exam: Normal appearance - ENT Exam ENT Exam: Mucous Membranes Moist - Respiratory Exam Respiratory Exam: Clear to Ausculation Bilateral. absent: Rales, Rhonchi, Wheezes - Cardiovascular Exam Cardiovascular Exam: REGULAR RHYTHM, +S1, +S2 - GI/Abdominal Exam GI & Abdominal Exam: Soft, Normal Bowel Sounds. absent: Tenderness - Neurological Exam Neurological Exam: Alert, Awake - Psychiatric Exam Psychiatric exam: Normal Affect - Skin Skin Exam: Intact - Additional Findings Additional findings: sacral region intact. gluteal region intact Assessment and Plan - Assessment and Plan (Free Text) Plan: 70 yo , f, PMhx/o MS. Patient's c/o 2 weeks of loss of appetite, low urination, admitted for possible acute pancreatitis. during hospitalization right maxillary odontogenic abscess Assessment/Plan 1) Multiple sclerosis -Dr. Mcduffie Neurology as outpatient. -Patient is stable and was seen 2 weeks ago. -PT evaluation recommends acute rehab -PT f/u -Acute rehab discussed with patient's Mr Leo yesterday and he is agree with acute rehab inpatient or outpatient, but it depends of medical insurance approval. breast worker Josr aware and states that the medical insurance approval will be by Monday or Monday 2) Right side odontogenic facial cellulitis - right facial swelling, right upper maxila with tooth decay and tooth percussion positive -Vitals sings reviewed: afebrile yesterday -Unasyn ( Ampicillin sodium/Sulbactam sodium) 3 g IV Q6h . 4 th day today. Will keep for 5 days and switch to oral antibiotic Amox-clavu 875 mg Q12 x 5 days. -Clindamycin 600 mg IV Q8h . 3 rd day today. will Stop after last dose today -ID consult appreciated: c/w Unasyn and Clindamycin -CT facial bones showed right maxillary odontogenic abscess with cellulitis -sed rate high 91 secondary to infection or MS -Echo Normal 3) Delirium hypoactive -resolved -Secondary to odontogenic infection 4) Elevated Lipase Resolved Asymptomatic Unlikely Pancreatitis Follow up Lipase- WNL Abdominal Ultrasound- Single gallstone within gallbladder. No pancreatitis, no cholecystitis. Vitals stable, Afebrile, No WBC, LFTs normal. Monitor vitals and I&O 5. DVT prophylaxis - Lovenox 40mg SC daily
[2016-09-24] MEDS: Enoxaparin 40 mg Syringe SC SCH (08:53)
[2016-09-24 14:56] LABS: HEMATOCRIT 35.1 % (34.0-47.0); MEAN CELL VOLUME 92.9 fl (81.0-99.0); MEAN CORPUSCULAR HEMOGLOBIN 30.1 pg (27.0-31.0); MEAN CORPUSCULAR HGB CONC 32.4 g/dL (33.0-37.0); RED CELL DISTRIBUTION WIDTH 13.4 % (11.5-14.5); WHITE BLOOD COUNT 3.6 K/uL (4.8-10.8)
--- NOTE | 2016-09-24 17:02 | CP.PCM.PN ---
Subjective - Date & Time of Evaluation Date of Evaluation: 09/24/16 Time of Evaluation: 17:00 - Subjective Subjective: ID NOTE PATIENT SHOWS IMPROVEMENT OF SWELLING AND PAIN CONSIDERING ABSCESS AND HISTORY OF MS WOULD CONTINUE BOTH IV ANTIBIOTICS FOR 7 TO 10 DAYS WOULD REPEAT SED RATE Objective - Vital Signs/Intake and Output Vital Signs (last 24 hours): Temp Pulse Resp BP Pulse Ox 98.7 F 73 18 104/56 L 94 L 09/24/16 08:51 09/24/16 08:51 09/24/16 08:51 09/24/16 08:51 09/24/16 08:51 - Medications Medications: Current Medications Enoxaparin Sodium (Lovenox) 40 mg SC DAILY [facility] PRN Reason: Protocol Last Admin: 09/24/16 08:53 Dose: 40 mg Ampicillin Sodium/Sulbactam (Sodium 3 gm/ Sodium Chloride) 100 mls @ 100 mls/ hr IVPB Q6 [facility] Last Admin: 09/24/16 16:17 Dose: 100 mls/hr Clindamycin Phosphate 600 mg/ (Sodium Chloride) 104 mls @ 104 mls/hr IVPB Q8 [facility] Stop: 09/24/16 23:59 Last Admin: 09/24/16 08:52 Dose: 104 mls/hr - Labs Labs: 09/24/16 14:50 09/17/16 06:00 PT 11.7 SECONDS (9.6-11.2) H 09/16/16 21:24 INR 1.13 (0.92-1.08) H 09/16/16 21:24 APTT 29.1 SECONDS (23.3-32.5) 09/16/16 21:24
[2016-09-25] MEDS: Clindamycin 600 MG in Sodium Chloride 0.9% 100 ML IVPB SCH ×3 (00:35→16:53)
[2016-09-25] MEDS: Ampicillin/Sulbactam 3 GM in Sodium Chloride 0.9% 100 ML IVPB SCH ×4 (03:38→23:16)
[2016-09-25 08:09] LABS: ALKALINE PHOSPHATASE 68 U/L (38-126); ALT/SGPT 34 U/L (9-52); AST/SGOT 44 U/L (14-36); BILIRUBIN,TOTAL 0.5 mg/dl (0.2-1.3); BLOOD UREA NITROGEN 11 mg/dl (7-17); CALCIUM 8.7 mg/dL (8.4-10.2); CARBON DIOXIDE 31 mmol/L (22-30); CHLORIDE 105 mmol/L (98-107); GFR AFRICAN-AMERICAN > 60; GLUCOSE,RANDOM 90 mg/dL (65-105); POTASSIUM 4.1 MMOL/L (3.6-5.0); SODIUM 148 mmol/l (132-148); TOTAL PROTEIN 6.6 G/DL (6.3-8.2)
[2016-09-25 08:17] LABS: ALB/GLOB RATIO 0.9 (1.0-2.1)
[2016-09-25] MEDS: Enoxaparin 40 mg Syringe SC SCH (09:14)
--- NOTE | 2016-09-25 10:10 | CP.PCM.PN ---
Subjective - Date & Time of Evaluation Date of Evaluation: 09/25/16 Time of Evaluation: 08:15 - Subjective Subjective: No active complaints. No interval events. Afebrile. Tolerating PO intake, though limited. Denies pain with mastication. No nausea, vomiting, diarrhea. AAxO(1). No new focal deficits. Objective - Vital Signs/Intake and Output Vital Signs (last 24 hours): Temp Pulse Resp BP Pulse Ox 98.3 F 68 18 108/66 99 09/25/16 08:38 09/25/16 08:38 09/25/16 08:38 09/25/16 08:38 09/25/16 08:38 - Medications Medications: Current Medications Enoxaparin Sodium (Lovenox) 40 mg SC DAILY [facility] PRN Reason: Protocol Last Admin: 09/25/16 09:14 Dose: 40 mg Ampicillin Sodium/Sulbactam (Sodium 3 gm/ Sodium Chloride) 100 mls @ 100 mls/ hr IVPB Q6 [facility] Last Admin: 09/25/16 03:38 Dose: 100 mls/hr Clindamycin Phosphate 600 mg/ (Sodium Chloride) 104 mls @ 104 mls/hr IVPB Q8 [facility] Last Admin: 09/25/16 09:14 Dose: 104 mls/hr - Labs Labs: 09/24/16 14:50 09/25/16 05:30 PT 11.7 SECONDS (9.6-11.2) H 09/16/16 21:24 INR 1.13 (0.92-1.08) H 09/16/16 21:24 APTT 29.1 SECONDS (23.3-32.5) 09/16/16 21:24 - Head Exam Head Exam: ATRAUMATIC, NORMOCEPHALIC Additional comments: Non-tender right mandible, maxilla No redness, swelling Poor dentition No facial pain over sinuses - Eye Exam Eye Exam: EOMI, Normal appearance - ENT Exam ENT Exam: Mucous Membranes Moist - Respiratory Exam Respiratory Exam: NORMAL BREATHING PATTERN. absent: Rales, Rhonchi, Wheezes - Cardiovascular Exam Cardiovascular Exam: REGULAR RHYTHM, +S1, +S2 - GI/Abdominal Exam GI & Abdominal Exam: Soft, Normal Bowel Sounds. absent: Distended, Tenderness - Extremities Exam Extremities Exam: Full ROM. absent: Pedal Edema, Tenderness - Neurological Exam Neurological Exam: Alert, Normal Gait, Oriented x3 Assessment and Plan - Assessment and Plan (Free Text) Plan: 1. Right side facial cellulitis and abscess Secondary to periodontal disease Afebrile. No leukocytosis. Improved CT facial bones showed right maxillary odontogenic abscess with cellulitis Echo Normal * Unasyn ( Ampicillin sodium/Sulbactam sodium) 3 g IV Q6h (DAY 5) * Clindamycin 600 mg IV Q8h (DAY 4) * Dr. Silverman on board, recommended 7-10 days of both Abx * Follow up ESR 2. Multiple sclerosis with Moderate Dementia, stable Dr. Mcduffie Neurology, will consult for recommendations of continuing/ initiating MS/ Dementia therapies PT evaluation recommends acute rehab facility Acute rehab discussed with patient's Mr. Leo yesterday and he is agreeable with acute rehab inpatient or outpatient, but it depends of medical insurance approval linen worker Ava aware and states that the medical insurance response will be by Monday or Monday. 3. DVT prophylaxis * Lovenox 40mg SC daily
[2016-09-26] MEDS: Clindamycin 600 MG in Sodium Chloride 0.9% 100 ML IVPB SCH ×3 (00:57→16:42)
[2016-09-26] MEDS: Ampicillin/Sulbactam 3 GM in Sodium Chloride 0.9% 100 ML IVPB SCH ×4 (03:49→21:42)
[2016-09-26] MEDS: Enoxaparin 40 mg Syringe SC SCH (08:54)
--- NOTE | 2016-09-26 09:31 | CP.PCM.PN ---
Subjective - Date & Time of Evaluation Date of Evaluation: 09/26/16 Time of Evaluation: 07:30 - Subjective Subjective: Patient seen and examined bedside feeling better. Denies headache, facial pain, chest pain, SOB. Tolerating diet. No face swelling today. AAO x 2( not in place) Objective - Vital Signs/Intake and Output Vital Signs (last 24 hours): Temp Pulse Resp BP Pulse Ox 98.5 F 61 18 98/58 L 94 L 09/26/16 08:23 09/26/16 08:23 09/26/16 08:23 09/26/16 08:23 09/26/16 08:23 - Medications Medications: Current Medications Enoxaparin Sodium (Lovenox) 40 mg SC DAILY [facility] PRN Reason: Protocol Last Admin: 09/26/16 08:54 Dose: 40 mg Ampicillin Sodium/Sulbactam (Sodium 3 gm/ Sodium Chloride) 100 mls @ 100 mls/ hr IVPB Q6 [facility] Last Admin: 09/26/16 03:49 Dose: 100 mls/hr Clindamycin Phosphate 600 mg/ (Sodium Chloride) 104 mls @ 104 mls/hr IVPB Q8 [facility] Last Admin: 09/26/16 08:53 Dose: 104 mls/hr - Labs Labs: 09/24/16 14:50 09/25/16 05:30 PT 11.7 SECONDS (9.6-11.2) H 09/16/16 21:24 INR 1.13 (0.92-1.08) H 09/16/16 21:24 APTT 29.1 SECONDS (23.3-32.5) 09/16/16 21:24 - Constitutional Appears: Non-toxic, No Acute Distress - Head Exam Head Exam: ATRAUMATIC, NORMOCEPHALIC Additional comments: no facial swelling - Eye Exam Eye Exam: Normal appearance - Respiratory Exam Respiratory Exam: Clear to Ausculation Bilateral. absent: Rales, Rhonchi, Wheezes - Cardiovascular Exam Cardiovascular Exam: REGULAR RHYTHM, +S1, +S2 - GI/Abdominal Exam GI & Abdominal Exam: Soft, Normal Bowel Sounds. absent: Guarding, Tenderness - Extremities Exam Extremities Exam: Normal Inspection. absent: Calf Tenderness, Pedal Edema - Neurological Exam Neurological Exam: Alert, Awake - Psychiatric Exam Psychiatric exam: Normal Affect, Normal Mood - Skin Skin Exam: Intact - Additional Findings Additional findings: sacral region intact Assessment and Plan - Assessment and Plan (Free Text) Plan: 70 yo , f, PMhx/o MS. Patient's c/o 2 weeks of loss of appetite, low urination, admitted for possible acute pancreatitis. during hospitalization right maxillary odontogenic abscess Assessment/plan 1. Right side facial cellulitis and abscess Secondary to periodontal disease Afebrile. No leukocytosis. Improved CT facial bones showed right maxillary odontogenic abscess with cellulitis Echo Normal Unasyn ( Ampicillin sodium/Sulbactam sodium) 3 g IV Q6h (DAY 6) Clindamycin 600 mg IV Q8h (DAY 5) Dr. Silverman on board, recommended 7-10 days of both Abx Follow up ESR 2. Multiple sclerosis with Moderate Dementia, stable Dr. Mcduffie Neurology, will consult for recommendations of continuing/ initiating MS/ Dementia therapies PT evaluation recommends acute rehab facility Acute rehab discussed with patient's Mr. Leo yesterday and he is agreeable with acute rehab inpatient or outpatient, but it depends of medical insurance approval property worker Ava aware and states that the medical insurance response will be by Monday or Monday. 3. DVT prophylaxis Lovenox 40mg SC daily
[2016-09-26] MEDS: Lactobacillus Acidophilus 500 MU Cap PO SCH (21:41)
[2016-09-27] MEDS: Clindamycin 600 MG in Sodium Chloride 0.9% 100 ML IVPB SCH (00:41)
[2016-09-27] MEDS: Ampicillin/Sulbactam 3 GM in Sodium Chloride 0.9% 100 ML IVPB SCH ×4 (03:49→21:48)
--- NOTE | 2016-09-27 08:12 | CON ---
DATE: 09/26/2016 CHIEF COMPLAINT: History of MS. HISTORY OF PRESENTING ILLNESS: This is a 70-year-old woman who has past medical history of multiple sclerosis more than 30 years, wheelchair bound/uses a walker at home. 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 daily for her MS, tizanidine for her mus precious tightness and ____ 60 mg ER for her cognitive impairment. Also, she is on coenzyme Q10 at 200 mg , alpha lipoic acid 600 mg and ____ 1000 mg p.o. daily for her cognition. She also does attention an d concentration exercises for cognitive impairment. She has been admitted to the hospital because sh e has had generalized weakness, also has right-sided facial cellulitis and abscess, which is secondar y to a periodontal disease. Her CAT scan of her facial bones showed the right maxillary orthodontic abscess and cellulitis. Echocardiogram was normal. She is on Unasyn and clindamycin and ID is on anabella joyce. ____ awaiting PT evaluation. Her is at bedside and discussed the case in detail. PAST MEDICAL HISTORY: History of multiple sclerosis, history of cognitive impairment and depression. REVIEW OF SYSTEMS: A 14-point review of systems negative except for the HPI. FAMILY HISTORY: Noncontributory. SOCIAL HISTORY: No illicit drug use, smoking, or ETOH abuse. MEDICATIONS: Reviewed via nurse's reconciliation sheet. PHYSICAL EXAMINATION: VITAL SIGNS: Temperature 98.5, pulse rate 61, blood pressure of ____, respiratory rate of 18, oxygen saturation 94% via room air. GENERAL: The patient is sitting up in bed in no acute distress. HEENT: Atraumatic, normocephalic. PERRLA. Extraocular muscles intact. NECK: Supple, no JVD, no adenopathy noted. LUNGS: Clear to auscultation. No adventitious sounds. HEART: S1, S2, normal rate and rhythm. No murmurs, rubs, or gallops. ABDOMEN: Soft, nontender, nondistended. Bowel sounds present. EXTREMITIES: No clubbing, cyanosis. Peripheral pulses 2+, felt bilaterally. NEUROLOGIC: The patient is alert, orientated to person, place, and time. Speech is ____, articulate s well. No aphasia noted. Attention span, thought process is slow. Immediate recall is 2/3 after 5 minutes. Cranial nerves II-XII intact. MOTOR: Has decreased bulk and spastic tone in the bilateral lower extremities. Strength is full in the upper extremities and 2/5 in bilateral lower extremities. Deep tendon reflexes 2+ throughout exc ept for brisk at both knees and ankles. Toes are downgoing bilaterally. COORDINATION: [id number] intact. There is no tremor. Rapid alternating movements are intact. GAIT: The patient uses a wheelchair ____ occasional walker at home. LABORATORY DATA: Sodium is 148, potassium ____, chloride of 105, carbon dioxide 31, BUN of 11, creat inine 0.6, random glucose of 90. ASSESSMENT AND PLAN: The patient is a 70-year-old woman with past medical history of multiple sclero sis of over 30 years, who has baseline spastic lower extremity paraparesis and is on azathioprine 50 mg ____ progressive multiple sclerosis, has been admitted to [facility] and found to have right-sided facial cellulitis and abscess secondary to periodontal disease. Is on clindamycin and Unasyn and infectious disease is on board. She is also deconditioned and her systolic and diasto lic blood pressure currently on the lower side. Her cognitive impairment is secondary to her multipl e sclerosis. She is on galantamine ____ mg ER for cognitive impairment along with alpha lipoic acid 600 mg daily as well as ____ 1000 mg daily and coenzyme Q10 at 200 mg daily. She also received bioti n ____ mg daily from an outside pharmacy. At this time, her multiple sclerosis is more of a progress jayne type and I recommend her to be in physical therapy for muscle strength and conditioning and coord ination and likely will need some form of subacute rehabilitation and continue with antibiotics for h er periodontal disease. At this time, she will continue with vitamin D 4000 international units p.o. daily for fatigue from multiple sclerosis and tizanidine ____ mg p.o. b.i.d. for muscle spasticity a nd azathioprine 50 mg p.o. daily for multiple sclerosis. ____ she can use from her home which can be given by her . Continue with current present medical management. No further neurological wo rkup needed at this time. Thank you for this consult. Jimi Mcduffie MD cc: [id number] TT: 09/26/2016 14:04:22 Confirmation # [id number] Dictation # [id number]
[2016-09-27] MEDS: Lactobacillus Acidophilus 500 MU Cap PO SCH ×2 (09:57→16:10)
--- NOTE | 2016-09-27 10:03 | CP.PCM.PN ---
Subjective - Date & Time of Evaluation Date of Evaluation: 09/27/16 Time of Evaluation: 07:40 - Subjective Subjective: Patient seen and examined bedside. AAO x2 ( not in place). Denies facial pain, chest pain, SOB, palpitation, abd pain. On physical therapy yesterday. Recommended acute rehab. Objective - Vital Signs/Intake and Output Vital Signs (last 24 hours): Temp Pulse Resp BP Pulse Ox 98.3 F 66 20 108/68 98 09/27/16 08:43 09/27/16 08:43 09/27/16 08:43 09/27/16 08:43 09/27/16 08:43 - Medications Medications: Current Medications Ampicillin Sodium/Sulbactam (Sodium 3 gm/ Sodium Chloride) 100 mls @ 100 mls/ hr IVPB Q6 [facility] Last Admin: 09/27/16 03:49 Dose: 100 mls/hr Lactobacillus Acidophilus (Bacid Acidophilus) 1 cap PO BID [facility] Last Admin: 09/27/16 09:57 Dose: 1 cap - Labs Labs: 09/24/16 14:50 09/25/16 05:30 PT 11.7 SECONDS (9.6-11.2) H 09/16/16 21:24 INR 1.13 (0.92-1.08) H 09/16/16 21:24 APTT 29.1 SECONDS (23.3-32.5) 09/16/16 21:24 - Constitutional Appears: Non-toxic, No Acute Distress - Head Exam Head Exam: ATRAUMATIC, NORMOCEPHALIC Additional comments: no facial swelling. - Eye Exam Eye Exam: Normal appearance - Neck Exam Neck Exam: Normal Inspection - Respiratory Exam Respiratory Exam: Clear to Ausculation Bilateral. absent: Rales, Rhonchi, Wheezes - Cardiovascular Exam Cardiovascular Exam: REGULAR RHYTHM, +S1, +S2 - GI/Abdominal Exam GI & Abdominal Exam: Soft, Normal Bowel Sounds. absent: Guarding, Tenderness - Extremities Exam Extremities Exam: Normal Inspection. absent: Calf Tenderness, Pedal Edema - Neurological Exam Neurological Exam: Alert, Awake Additional comments: Oriented x 2 ( not in place) - Psychiatric Exam Psychiatric exam: Normal Mood - Skin Skin Exam: Intact Additional comments: sacral region intact, no pressures ulcers Assessment and Plan - Assessment and Plan (Free Text) Plan: 70 yo , f, PMhx/o MS. Patient's c/o 2 weeks of loss of appetite, low urination, admitted for possible acute pancreatitis. During hospitalization right maxillary odontogenic abscess Assessment/plan 1. Right side facial cellulitis and abscess Secondary to periodontal disease Afebrile. No leukocytosis. Improved CT facial bones showed right maxillary odontogenic abscess with cellulitis Echo Normal Unasyn ( Ampicillin sodium/Sulbactam sodium) 3 g IV Q6h (DAY 7) Clindamycin 600 mg IV Q8h (DAY 6) Dr. Silverman on board, recommended 7-10 days of both Abx Follow up ESR -F/U CT Facial bones. S/P right odontogenic abscess under antibiotic treatment. 2. Multiple sclerosis with Moderate Dementia, stable Dr. Mcduffie Neurology appreciated. Suggest c/w physical therapy. Cognitive state is associated with MS. PT evaluation recommends acute rehab facility Acute rehab discussed with patient's Mr. Leo and he is agreeable with acute rehab inpatient or outpatient, but it depends of medical insurance approval calender worker helper Ava aware and states that the medical insurance response will be by Monday or Monday. Pending final decision from medical insurance. 3. DVT prophylaxis Lovenox 40mg SC daily
[2016-09-27] MEDS ORDERED: Sodium Chloride 0.9% 50 ML IV ONE (13:08)
[2016-09-27] MEDS ORDERED: Iohexol 300 100 ML IJ ONE (13:08)
--- NOTE | 2016-09-27 15:15 | CT ---
PROCEDURE: CT ORBITS WITH CONTRAST. HISTORY: Right odontogenic abscess COMPARISON: Comparison is made to the previous study dated 09/21/2016 TECHNIQUE: Following administration of intravenous iodinated contrast, axial CT images of the orbits were obtained. Coronal and sagittal reformats were generated. Intravenous contrast dose: 90 cc of Omnipaque 300 Radiation dose: Total exam DLP = 411.66 mGy-cm. FINDINGS: RIGHT ORBIT: RIGHT BONY ORBIT: Normal. RIGHT INTRAORBITAL STRUCTURES: Globe: Normal. Extraocular muscles: Normal. Post septal space: Normal. Optic Nerve: Normal. Lacrimal Apparatus: Normal. RIGHT PRESEPTAL SOFT TISSUES: Normal. LEFT ORBIT: LEFT BONY ORBIT: Normal. LEFT INTRAORBITAL STRUCTURES: Globe: Normal. Extraocular muscles: Normal. Post septal space: Normal. Optic Nerve: Normal. Lacrimal Apparatus: Normal. LEFT PRESEPTAL SOFT TISSUES: Normal. OTHER: Mild mucosal thickening seen at the right maxillary sinus. [id number] nasal septum deviation to the right seen. The maxilla and the mandible regions were not included in this study. Therefore cannot evaluate for abscess formation adjacent to the maxilla or mandibular regions. IMPRESSION: No evidence of acute pathology or infectious process in the orbits. Mild right maxillary sinus mucosal thickening seen. If clinically warranted dedicated maxillofacial CT with contrast may be obtained to evaluate the previously described abscess formation adjacent to the right maxilla.
--- NOTE | 2016-09-27 19:22 | CP.PCM.PN ---
Subjective - Date & Time of Evaluation Date of Evaluation: 09/27/16 Time of Evaluation: 19:20 - Subjective Subjective: ID NOTE CLINICALLY IMPROVED CT SCAN DID NOT INCLUDE MAXILLA AND MANDIBLE CONTINUE IV UNASYYN Objective - Vital Signs/Intake and Output Vital Signs (last 24 hours): Temp Pulse Resp BP Pulse Ox 98.5 F 90 18 95/64 L 97 09/27/16 16:43 09/27/16 16:43 09/27/16 16:43 09/27/16 16:43 09/27/16 16:43 - Medications Medications: Current Medications Ampicillin Sodium/Sulbactam (Sodium 3 gm/ Sodium Chloride) 100 mls @ 100 mls/ hr IVPB Q6 [facility] Last Admin: 09/27/16 16:10 Dose: 100 mls/hr Lactobacillus Acidophilus (Bacid Acidophilus) 1 cap PO BID [facility] Last Admin: 09/27/16 16:10 Dose: 1 cap - Labs Labs: 09/24/16 14:50 09/25/16 05:30 PT 11.7 SECONDS (9.6-11.2) H 09/16/16 21:24 INR 1.13 (0.92-1.08) H 09/16/16 21:24 APTT 29.1 SECONDS (23.3-32.5) 09/16/16 21:24
[2016-09-28] MEDS: Ampicillin/Sulbactam 3 GM in Sodium Chloride 0.9% 100 ML IVPB SCH ×4 (04:11→21:47)
[2016-09-28] MEDS ORDERED: Iohexol 300 50 ML ONE (08:01)
[2016-09-28] MEDS ORDERED: Sodium Chloride 0.9% 50 ML IV ONE (08:01)
[2016-09-28 08:15] LABS: BASO % 0.7 % (0.0-2.0); EOS # 0.1 K/uL (0.0-0.7); EOS % 1.7 % (0.0-4.0); HEMATOCRIT 33.8 % (34.0-47.0); LYMPH # 1.8 K/uL (1.0-4.3); LYMPH % 26.6 % (20.0-40.0); MEAN CELL VOLUME 92.6 fl (81.0-99.0); MEAN CORPUSCULAR HEMOGLOBIN 30.8 pg (27.0-31.0); MEAN CORPUSCULAR HGB CONC 33.3 g/dL (33.0-37.0); MEAN PLATELET VOLUME 8.8 fl (7.2-11.7); MONO # 0.6 K/uL (0.0-0.8); MONO % 8.5 % (0.0-10.0); NEUT # 4.2 K/uL (1.8-7.0); NEUT % 62.5 % (50.0-75.0); RED CELL DISTRIBUTION WIDTH 13.5 % (11.5-14.5); WHITE BLOOD COUNT 6.7 K/uL (4.8-10.8)
[2016-09-28 08:24] LABS: ALKALINE PHOSPHATASE 71 U/L (38-126); ALT/SGPT 47 U/L (9-52); AST/SGOT 48 U/L (14-36); BILIRUBIN,TOTAL 0.6 mg/dl (0.2-1.3); BLOOD UREA NITROGEN 12 mg/dl (7-17); CALCIUM 8.6 mg/dL (8.4-10.2); CARBON DIOXIDE 30 mmol/L (22-30); CHLORIDE 104 mmol/L (98-107); GFR AFRICAN-AMERICAN > 60; GLUCOSE,RANDOM 87 mg/dL (65-105); POTASSIUM 3.8 MMOL/L (3.6-5.0); SODIUM 146 mmol/l (132-148); TOTAL PROTEIN 6.5 G/DL (6.3-8.2)
--- NOTE | 2016-09-28 08:50 | CP.PCM.PN ---
Subjective - Date & Time of Evaluation Date of Evaluation: 09/28/16 Time of Evaluation: 07:40 - Subjective Subjective: Patient seen and examined bedside. No overnight events. Denies headache, facial pain, N/V, Abd pain. Pending medical insurance approval for acute rehab. PT reordered today Objective - Vital Signs/Intake and Output Vital Signs (last 24 hours): Temp Pulse Resp BP Pulse Ox 98.6 F 54 L 20 100/63 96 09/28/16 07:52 09/28/16 07:52 09/28/16 07:52 09/28/16 07:52 09/28/16 07:52 - Medications Medications: Current Medications Ampicillin Sodium/Sulbactam (Sodium 3 gm/ Sodium Chloride) 100 mls @ 100 mls/ hr IVPB Q6 [facility] Last Admin: 09/28/16 04:11 Dose: 100 mls/hr Lactobacillus Acidophilus (Bacid Acidophilus) 1 cap PO BID [facility] Last Admin: 09/27/16 16:10 Dose: 1 cap - Labs Labs: 09/28/16 06:40 09/28/16 06:40 PT 11.7 SECONDS (9.6-11.2) H 09/16/16 21:24 INR 1.13 (0.92-1.08) H 09/16/16 21:24 APTT 29.1 SECONDS (23.3-32.5) 09/16/16 21:24 - Constitutional Appears: Non-toxic, No Acute Distress - Head Exam Head Exam: ATRAUMATIC, NORMOCEPHALIC - Eye Exam Eye Exam: Normal appearance - Respiratory Exam Respiratory Exam: Clear to Ausculation Bilateral. absent: Rales, Rhonchi, Wheezes - Cardiovascular Exam Cardiovascular Exam: REGULAR RHYTHM, +S1, +S2 - GI/Abdominal Exam GI & Abdominal Exam: Soft, Normal Bowel Sounds. absent: Guarding, Tenderness - Extremities Exam Extremities Exam: Normal Inspection. absent: Pedal Edema - Neurological Exam Neurological Exam: Alert, Awake - Psychiatric Exam Psychiatric exam: Normal Affect, Normal Mood - Skin Skin Exam: Intact Assessment and Plan - Assessment and Plan (Free Text) Plan: 70 yo , f, PMhx/o MS. Patient's c/o 2 weeks of loss of appetite, low urination, admitted for possible acute pancreatitis. During hospitalization right maxillary odontogenic abscess Assessment/plan 1. Right side facial cellulitis and abscess Secondary to periodontal disease Afebrile. No leukocytosis. Improved CT facial bones showed right maxillary odontogenic abscess with cellulitis Echo Normal Unasyn ( Ampicillin sodium/Sulbactam sodium) 3 g IV Q6h (DAY 8) Clindamycin 600 mg IV Q8h (DAY 7) Dr. Silverman on board, recommended 7-10 days of both Abx Follow up ESR -F/U CT Facial bones. Significantly improvement. 2. Multiple sclerosis with Moderate Dementia, stable Dr. Mcduffie Neurology appreciated. Suggest c/w physical therapy. Cognitive state is associated with MS. PT evaluation recommends acute rehab facility Acute rehab discussed with patient's Mr. Leo and he is agreeable with acute rehab inpatient or outpatient, but it depends of medical insurance approval -Medical insurance approval pending. group worker aware 3. DVT prophylaxis Lovenox 40mg SC daily
[2016-09-28] MEDS: Lactobacillus Acidophilus 500 MU Cap PO SCH ×2 (09:00→16:46)
--- NOTE | 2016-09-28 10:30 | CT ---
PROCEDURE: CT MAXILLOFACIAL BONES WITH CONTRAST HISTORY: Right odontogenic abscess COMPARISON: Comparison is made to the previous study dated 09/21/2016 TECHNIQUE: Contiguous axial CT images of the maxillofacial bones were obtained following administration of IV contrast. Coronal and sagittal reformats were generated. Intravenous contrast Dose: 95 mL Omnipaque 300 Radiation dose: Total exam DLP = 753.76 mGy-cm. FINDINGS: NASAL BONES: Unremarkable. ORBITS: Unremarkable. PARANASAL SINUSES/ MASTOIDS: There is mild mucosal thickening seen at the right maxillary sinus which has improved since the previous exam. No evidence of sinusitis. MAXILLA: Again seen are periodontal lucency seen at the right premolar and 1st molar teeth. Interval improvement in the previously seen small abscess formation and inflammatory changes adjacent to the right maxilla since the previous study. The current study demonstrate residual very small fluid and small droplet of air adjacent to the right maxilla. . MANDIBLE/ TEMPOROMANDIBULAR JOINTS: No evidence of acute pathology at the mandible. Interval significant improvement in the previously seen right facial subcutaneous stranding and inflammatory changes adjacent to the right mandible compared to the previous exam. SKULL BASE: Unremarkable. TEMPORAL BONES: Middle ears and mastoid grossly unremarkable. OTHER FINDINGS: None. IMPRESSION: Interval significant improvement in the previously seen inflammatory changes and small abscess adjacent to the right maxilla since the previous study. No evidence of significant or drainable abscess or fluid collection adjacent to the maxilla. Interval improvement in the previously seen right facial subcutaneous stranding and inflammatory changes since the previous exam. Interval improvement in the previously seen right maxillary sinus mucosal thickening.
[2016-09-28 16:37] VITALS: O2SAT 97
[2016-09-29] MEDS: Ampicillin/Sulbactam 3 GM in Sodium Chloride 0.9% 100 ML IVPB SCH ×2 (04:12→09:33)
[2016-09-29 07:53] VITALS: BP 100/62; PULSE 65; RESP 20; TEMP 97.3
[2016-09-29] MEDS: Lactobacillus Acidophilus 500 MU Cap PO SCH (09:46)
--- NOTE | 2016-09-29 11:06 | CP.PCM.DIS ---
Provider - Provider Date of Admission: 09/16/16 23:02 Attending physician: Tamara Gomez MD Time Spent in preparation of Discharge (in minutes): 40 Diagnosis - Discharge Diagnosis (1) Facial cellulitis Status: Resolved Comment: -secondary to maxilllary odontogenic abscess (2) Multiple sclerosis Status: Chronic Hospital Course - Lab Results Lab Results: Micro Results 09/17/16 02:00 Urine Urine Culture - Final 50-100,000 CFU/ML. MULTIPLE SPECIES. SUGGEST REPEAT SPECIMEM. Most Recent Lab Values WBC 6.7 K/uL (4.8-10.8) D 09/28/16 06:40 RBC 3.65 Mil/uL (3.80-5.20) L 09/28/16 06:40 Hgb 11.3 g/dL (12.0-16.0) L 09/28/16 06:40 Hct 33.8 % (34.0-47.0) L 09/28/16 06:40 MCV 92.6 fl (81.0-99.0) 09/28/16 06:40 MCH 30.8 pg (27.0-31.0) 09/28/16 06:40 MCHC 33.3 g/dL (33.0-37.0) 09/28/16 06:40 RDW 13.5 % (11.5-14.5) 09/28/16 06:40 Plt Count 294 K/uL (130-400) 09/28/16 06:40 MPV 8.8 fl (7.2-11.7) 09/28/16 06:40 Neut % (Auto) 62.5 % (50.0-75.0) 09/28/16 06:40 Lymph % (Auto) 26.6 % (20.0-40.0) 09/28/16 06:40 [place] % (Auto) 8.5 % (0.0-10.0) 09/28/16 06:40 Eos % (Auto) 1.7 % (0.0-4.0) 09/28/16 06:40 Baso % (Auto) 0.7 % (0.0-2.0) 09/28/16 06:40 Neut # 4.2 K/uL (1.8-7.0) 09/28/16 06:40 Lymph # 1.8 K/uL (1.0-4.3) 09/28/16 06:40 [place] # 0.6 K/uL (0.0-0.8) 09/28/16 06:40 Eos # 0.1 K/uL (0.0-0.7) 09/28/16 06:40 Baso # 0.0 K/uL (0.0-0.2) 09/28/16 06:40 ESR 93 mm/hr (0-30) H 09/25/16 05:30 PT 11.7 SECONDS (9.6-11.2) H 09/16/16 21:24 INR 1.13 (0.92-1.08) H 09/16/16 21:24 APTT 29.1 SECONDS (23.3-32.5) 09/16/16 21:24 Sodium 146 mmol/l (132-148) 09/28/16 06:40 Potassium 3.8 MMOL/L (3.6-5.0) 09/28/16 06:40 Chloride 104 mmol/L (98-107) 09/28/16 06:40 Carbon Dioxide 30 mmol/L (22-30) 09/28/16 06:40 Anion Gap 16 (10-20) 09/28/16 06:40 BUN 12 mg/dl (7-17) 09/28/16 06:40 Creatinine 0.6 mg/dL (0.7-1.2) L 09/28/16 06:40 Est GFR ( Amer) > 60 09/28/16 06:40 Est GFR (Non-Af Amer) > 60 09/28/16 06:40 POC Glucose (mg/dL) 102 mg/dL (65-110) 09/16/16 21:25 Random Glucose 87 mg/dL (65-105) 09/28/16 06:40 Lactic Acid 0.8 MMOL/L (0.7-2.1) 09/16/16 21:33 Calcium 8.6 mg/dL (8.4-10.2) 09/28/16 06:40 Phosphorus 3.6 mg/dl (2.5-4.5) 09/16/16 21:24 Magnesium 2.2 MG/DL (1.6-2.3) 09/16/16 21:24 Total Bilirubin 0.6 mg/dl (0.2-1.3) 09/28/16 06:40 AST 48 U/L (14-36) H 09/28/16 06:40 ALT 47 U/L (9-52) 09/28/16 06:40 Alkaline Phosphatase 71 U/L (38-126) 09/28/16 06:40 Troponin I < 0.0120 ng/mL (0.00-0.120) 09/16/16 21:24 Total Protein 6.5 G/DL (6.3-8.2) 09/28/16 06:40 Albumin 3.3 g/dL (3.5-5.0) L 09/28/16 06:40 Globulin 3.2 gm/dL (2.2-3.9) 09/28/16 06:40 Albumin/Globulin Ratio 1.0 (1.0-2.1) 09/28/16 06:40 Triglycerides 105 mg/DL (0-149) 09/17/16 06:00 Cholesterol 164 mg/dL (0-199) 09/17/16 06:00 LDL Cholesterol Direct 94 mg/dL (0-129) 09/17/16 06:00 HDL Cholesterol 40 MG/DL (30-70) 09/17/16 06:00 Lipase 167 U/L (23-300) 09/17/16 11:50 Procalcitonin < 0.05 NG/ML (0.19-0.49) L 09/21/16 05:40 TSH 3rd Generation 1.52 mIU/ML (0.46-4.68) 09/16/16 21:24 Urine Color Yellow (YELLOW) 09/17/16 02:00 Urine Clarity Slighty-cloudy (Clear) 09/17/16 02:00 Urine pH 5.0 (5.0-8.0) 09/17/16 02:00 Ur Specific [place] 1.027 (1.003-1.030) 09/17/16 02:00 Urine Protein 30 mg/dL (NEGATIVE) 09/17/16 02:00 Urine Glucose (UA) Neg mg/dL (Normal) 09/17/16 02:00 Urine Ketones 80 mg/dL (NEGATIVE) 09/17/16 02:00 Urine Blood Negative (NEGATIVE) 09/17/16 02:00 Urine Nitrate Negative (NEGATIVE) 09/17/16 02:00 Urine Bilirubin Negative (NEGATIVE) 09/17/16 02:00 Urine Urobilinogen 0.2-1.0 mg/dL (0.2-1.0) 09/17/16 02:00 Ur Leukocyte Esterase Large [place]/uL (Negative) 09/17/16 02:00 Urine RBC (Auto) 7 /hpf (0-3) H 09/17/16 02:00 Urine Microscopic WBC 49 /hpf (0-5) H 09/17/16 02:00 Ur Squamous Epith Cells 1 /hpf (0-5) 09/17/16 02:00 Urine Bacteria Rare (<OCC) 09/17/16 02:00 - Hospital Course Hospital Course: 70 yo , f, PMhx/o MS. Patient's c/o 2 weeks of loss of appetite, low urination, admitted for possible acute pancreatitis due to high lipase levels. Lipase were repeated normal and CT abd showed pancreas normal. Pancreatitis was r/o. During hospitalization patient had sudden right facial swelling secondary to right maxillary odontogenic abscess, treated with antibiotic Unasym and clyndamicin x 7 days. Patient afebrile, facial swelling improved. CT maxillary showed right odontogenic abscess. f/u CT maxillary w contrast showed significantly improvement and not abscess. ID and Neuro on board. Patient's medical insurance did not approve acute rehab in the hospital. Patient will have appointment this monday 9 am with Oral Surgery DrValentine Appt was set up by Dr Surjit Gauthier . will c/w oral antibiotic Augmentin 875 mg BID x 7 days. Patient will have Home Health Aid at home. Discharge Exam - Head Exam Head Exam: ATRAUMATIC, NORMOCEPHALIC Additional comments: no facial swelling, no orbital cellulitis - Eye Exam Eye Exam: Normal appearance - Respiratory Exam Respiratory Exam: Clear to PA & Lateral, NORMAL BREATHING PATTERN. absent: Rales, Rhonchi, Wheezes - Cardiovascular Exam Cardiovascular Exam: REGULAR RHYTHM, +S1, +S2 - GI/Abdominal Exam GI & Abdominal Exam: Normal Bowel Sounds, Soft. absent: Guarding, Rebound - Extremities Exam Extremities exam: normal inspection - Neurological Exam Neurological exam: Alert, Oriented x3 - Psychiatric Exam Psychiatric exam: Normal Affect, Normal Mood - Skin Skin Exam: Intact - Additional Findings Additional findings: sacral region skin intact. no pressure ulcers Discharge Plan - Discharge Medications Prescriptions: Amoxicillin/Clavulanate [Augmentin 875 MG-125 MG] 1 tab PO BID #14 tab - Follow Up Plan Condition: GOOD Disposition: HOME/ ROUTINE Instructions: Pancreatitis (DC) Additional Instructions: -Follow up with primary Physician within 7 days -Follow up with Neurology within 2-3 weeks -Follow with Oral Surgery. Appointment was set up For 10/01/16 at [address] at [address] [place] [id number] - Augmentin 875 mg BID x 7 days -Drink yogurt everyday.
--- NOTE | 2016-10-02 11:41 | PQF GENQUE ---
Dr. Gomez pt was admitted with loss of appetite, low urination and high lipase levels. Repeated lipase was normal and CT showed normal pancreas. What is the principal diagnosis for this account? This form is a permanent part of the medical record Clarification of your documentation is requested to better reflect the severity of illness and intensity of treatment of your patient. Indicators present [] Specify: [] [] Specify: [] [] Specify: [] [] Specify: [] Location in the medical record that reflects the above clinical findings: [] Treatment Provided: [] PHYSICIAN'S RESPONSE Patient had cellulitis of the face/mouth causeing poor appetite. Pt did not have pancreatitis. Based on your medical judgment of the clinical indicators outlined above please clarify the following: [] Practitioner response [] If unable to determine, please check the box, sign and date. Present On Admission (POA) Indicator: [] Present at the time of admission [] Not present at the time of admission [] Clinically Undetermined In responding to this query, please exercise your independent professional judgment. The fact that a question is asked does not imply that any particular answer is desired or expected. Thank you for your clarification on this documentation. If you have any questions please call:[ ] * Thank you, [ ]Stefany Mathews licensed occupational therapy assistant MANAS
== END 2016-09-29 15:04 | disposition home health service (06) | DRG 603 ==
LOC: H.ER 19:10 → H.ERHOLD 23:02 → H.MEDSURG1 09-17 02:15
PROVIDERS: ADMIT Family Medicine Geriatric Medicine; ATTEND Family Medicine Geriatric Medicine
DX: L03.211 Cellulitis of face (principal); F05 Delirium due to known physiological condition; G82.20 Paraplegia, unspecified; G35 Multiple sclerosis; F02.80 Dementia in other diseases classified elsewhere, unspecified severity, without behavioral disturbance, psychotic disturbance, mood disturbance, and anxiety; M81.0 Age-related osteoporosis without current pathological fracture; Z99.3 Dependence on wheelchair; K05.6 Periodontal disease, unspecified; K02.9 Dental caries, unspecified